=== PATIENT | female | born 1980 | race Caucasian/White ===

== ENCOUNTER → 2021-06-30 09:54 | Outpatient (CLI) | payer OTHER, MEDICAID, SELFPAY ==
--- NOTE | 2021-06-30 | DI.US.S_ITS ---
PROCEDURE: US OB <= 14 WEEKS FETUS INDICATIONS: INITIAL SIZE AND DATES OUTSIDE/PRIOR DATING DATA: Last menstrual period (LMP): 05/07/2021. LMP-based estimated date of delivery (ADAL): 02/11/2022. First dating scan (date and location): 06/30/2021. Estimated date of delivery (ADAL) from first dating scan: 02/11/2022. TECHNIQUE: Real-time scanning was performed of the fetus and maternal pelvic organs, with image documentation. Endovaginal scanning was also performed to better visualize the fetus and maternal ovaries. COMPARISON: None. FINDINGS: Embryo: Harper-rump length is 1.5 cm corresponding with 7 weeks 5 days chest a espino. Heart rate: 155 Measurement variability in dating: +/- 4 weeks by LMP, +/- 7 days by mean sac diameter (use before 6 weeks gestation if crown-rump length not able to be measured), +/- 5 days by crown-rump length (up to 8 weeks 6 days gestation), +/- 7 days by crown-rump length (up to 13 weeks 6 days gestation). Maternal organs: The left ovary has a 5.2 x 3.4 x 6.6 cm simple cyst. IMPRESSION: 1. Single live intrauterine . 2. 5.2 x 3.4 x 6.6 cm simple cyst of the left ovary. Dictated by: Ronnie Posey M.D. on 06/30/2021 at 13:55 Approved by: Ronnie Posey M.D. on 06/30/2021 at 13:56
== END ==
PROVIDERS: Referring Provider Midwife; Visit Provider Midwife
DX: Z36.87 Encounter for antenatal screening for uncertain dates (principal); O34.81 Maternal care for other abnormalities of pelvic organs, first trimester; N83.292 Other ovarian cyst, left side; Z3A.01 Less than 8 weeks gestation of pregnancy
CPT/HCPCS: 76801; 76817